=== PATIENT | male | born 1945 | race Caucasian/White ===

== ENCOUNTER → 2019-03-07 | Outpatient (CLI) | payer MEDICARE, BC ==
[~2019-03-07] MED LIST: ALEVE220 MG PO; LISINOPRIL40 MG PO
== END ==
LOC: COL.RAD 10:40
DX: I65.23 Occlusion and stenosis of bilateral carotid arteries (principal); M46.93 Unspecified inflammatory spondylopathy, cervicothoracic region
CPT/HCPCS: Q9967